=== PATIENT | female | born 1965 | race Caucasian/White ===

== ENCOUNTER 2018-05-23 17:09 | Inpatient (IN) | payer BC ==
[~2018-05-23] VITALS: Ht 165.1 cm; Wt 71.4 kg
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
[2018-05-23 17:55] LABS: BASO # 0.1 x10^3/uL (0.0-0.2); BASO % 1 % (0-3); EOS # 0.1 x10^3/uL (0.0-0.7); EOS % 1 % (0-3); HEMATOCRIT 43.5 % (36.0-47.0); HEMOGLOBIN 14.4 g/dL (12.0-15.5); LYMPH # 2.2 x10^3/uL (1.0-4.8); LYMPH % 22 % (24-48); MEAN CORPUSCULAR HEMOGLOBIN 29 pg (25-35); MEAN CORPUSCULAR HGB CONC 33 g/dL (31-37); MEAN CORPUSCULAR VOLUME 89 fL (79-100); MONO # 0.7 x10^3/uL (0.0-1.1); MONO % 7 % (0-9); NEUT # 7.3 x10^3uL (1.8-7.7); NEUT % 70 % (31-73); PLATELET COUNT 366 x10^3/uL (140-400); RED CELL DISTRIBUTION WIDTH 14.3 % (11.5-14.5); WHITE BLOOD COUNT 10.4 x10^3/uL (4.0-11.0)
[2018-05-23 18:11] LABS: ALBUMIN 4.3 g/dL (3.4-5.0); ALBUMIN/GLOBULIN RATIO 1.3 (1.0-1.7); CALCIUM 9.3 mg/dL (8.5-10.1); CREATININE 1.2 mg/dL (0.6-1.0); GFR 47.2; POTASSIUM 4.1 mmol/L (3.5-5.1); TOTAL BILIRUBIN 0.3 mg/dL (0.2-1.0); TOTAL PROTEIN 7.6 g/dL (6.4-8.2)
[2018-05-23] MEDS ORDERED: IV RINGERS SOLUTION,LACTATED 1,000 ML IV ONE (19:00)
[2018-05-23] MEDS ORDERED: ONDANSETRON PF 4 MG/2 ML VIAL. IV PRN (19:00)
[2018-05-23] MEDS: FAMOTIDINE 20 MG TABLET PO SCH (19:34)
[2018-05-23] MEDS: ENOXAPARIN ** NOTE DOSE ** SYRINGE SQ SCH (19:35)
--- NOTE | 2018-05-23 22:15 | NUR ---
ADMISSION: The patient, MADAI SANTANA, 53 y/o, F admitted by VINEET MARAVILLA MD, was given written information regarding hospital policies, unit procedures and contact persons. Pt arrived to room 109 via gurney, accompanied by [facility] and nursing sup. Dx: chest pain. Pt reports intermittent epigastric pain along with left arm numbness since Tuesday. Seen today at PCP office and sent to ED for workup. PMH reviewed, denies taking any home meds. Placed on telemetry showing NSR with HR in the 60's. Pt denies current pain. Will consult [facility] cardiology in AM. POC and unit routines discussed with pt, voiced understanding. Call light in reach. Valuables were checked and logged. Left in room with patient.
[2018-05-23 22:26] VITALS: BP 115/71
[2018-05-23] MEDS ORDERED: IBUP200T44 PO (23:09)
[2018-05-24] VITALS (7 sets, daily range): BP systolic 96–133; BP diastolic 58–84
--- NOTE | 2018-05-24 00:03 | RAD ---
Examination: CHEST PA LATERAL History: CHEST PAIN LESS THAN 24 HRS Comparison/Correlation: 12/19/2013 two-view chest x-ray exam Findings: PA and lateral views of chest were obtained. Heart size and pulmonary vasculature are normal. No infiltrate or effusion. Bony structures are grossly unremarkable for patient's age. Upper abdominal surgical clips noted. Inferior vena cava filter appears be present. Impression: No active disease. Electronically signed by: Hany Burrows MD (05/23/2018 11:59 PM) [facility]
--- NOTE | 2018-05-24 05:51 | EKG ---
[address] [address] Test Date: 2018-05-23 Test Time: 17:18:58 Pat Name: MADAI SANTANA Department: Room: 109 A Gender: F [employer]: : 1965 Requested By: VIVIAN GABRIEL Order Number: [id number] Reading MD: Kaiser Montero MD Measurements Intervals [place] Rate: 85 P: 51 MS: 174 QRS: 54 QRSD: 78 T: 54 QT: 364 QTc: 433 Interpretive Statements SINUS RHYTHM Electronically Signed On 05-30-2018 9:16:28 ANIMAL ASSISTED THERAPIST by Kaiser Montero MD
--- NOTE | 2018-05-24 06:25 | NUR ---
CARDIOLOGY CONSULT CALLED TO Aileen GRAY/Surjit WITH ANSWERING SERVICE. AWAITING CALL BACK.
[2018-05-24 06:44] LABS: CALCIUM 8.8 mg/dL (8.5-10.1); GFR 58.2; POTASSIUM 4.1 mmol/L (3.5-5.1)
[2018-05-24 08:08] LABS: BASO # 0.1 x10^3/uL (0.0-0.2); BASO % 2 % (0-3); EOS # 0.2 x10^3/uL (0.0-0.7); EOS % 2 % (0-3); HEMATOCRIT 45.4 % (36.0-47.0); LYMPH # 1.9 x10^3/uL (1.0-4.8); LYMPH % 27 % (24-48); MEAN CORPUSCULAR HEMOGLOBIN 30 pg (25-35); MEAN CORPUSCULAR HGB CONC 33 g/dL (31-37); MEAN CORPUSCULAR VOLUME 90 fL (79-100); MONO # 0.5 x10^3/uL (0.0-1.1); MONO % 8 % (0-9); NEUT # 4.3 x10^3uL (1.8-7.7); NEUT % 62 % (31-73); PLATELET COUNT 216 x10^3/uL (140-400); RED BLOOD COUNT 5.02 x10^6/uL (3.50-5.40); RED CELL DISTRIBUTION WIDTH 14.4 % (11.5-14.5)
[2018-05-24 08:52] LABS: PLT ESTIMATE ADEQUATE (ADEQUATE)
[2018-05-24 08:53] LABS: PLATELET CLUMP PRESENT
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
[2018-05-24] MEDS: ASPIRIN 81 MG TAB.CHEW PO SCH (09:11)
[2018-05-24] MEDS: FAMOTIDINE 20 MG TABLET PO SCH ×2 (09:11→21:04)
[2018-05-24] MEDS: ENOXAPARIN ** NOTE DOSE ** SYRINGE SQ SCH ×2 (09:12→21:04)
--- NOTE | 2018-05-24 10:16 | RAD ---
EXAM: Head CT without contrast. HISTORY: Memory loss. Stuttering. Dizziness. TECHNIQUE: Computed tomographic images of the head were obtained without contrast. *One or more of the following individualized dose reduction techniques were utilized for this examination: 1. Automated exposure control. 2. Adjustment of the mA and/or kV according to patient size. 3. Use of iterative reconstruction technique. COMPARISON: None. FINDINGS: There is no acute or subacute extra-axial or intraparenchymal hemorrhage. There is no mass effect or midline shift. There is no hydrocephalus. The little-white matter differentiation pattern is intact. The visualized portions of the orbits, paranasal sinuses and mastoid air cells are unremarkable. No suspicious calvarial lesion is seen. IMPRESSION: No acute intracranial findings. Electronically signed by: Jennifer Palafox MD (05/24/2018 10:11 AM) [place] [id number]
--- NOTE | 2018-05-24 23:59 | PN ---
DATE: SUBJECTIVE: This is a 53-year-old female came in with chest pain and pain radiating down her left arm. The patient is resting fairly comfortably, making fairly good progress overall. The patient has been noted to have some pain with and without activity. Dr. Montero put a wire in her to monitor her heart rhythm. Cardiac enzymes have been negative so far. OBJECTIVE: VITAL SIGNS: Blood pressure 101/60, respiratory rate 20, pulse 60, afebrile. GENERAL: The patient is alert and oriented. LUNGS: Diminished throughout, poor movement of air, but clear. CARDIOVASCULAR: Regular sinus rhythm. ABDOMEN: Soft, nontender. NEUROLOGIC: The patient's slightly anxious. LABORATORY DATA: Otherwise, labs are basically stable. PLAN: We will go ahead and continue to monitor the patient accordingly and hopefully ready for transfer in the morning to [facility] for further cardiac and neurological testing. Carotid Dopplers of lower extremity and ultrasounds were still pending. VINEET MARAVILLA MD DR: RYAN/ramu JOB#: [id number] / [id number]
[2018-05-25 05:24] VITALS: BP 113/62
--- NOTE | 2018-05-25 07:19 | CARD ---
MR#: [id number] Date of Study: 05/24/2018 Ordering Physician: TONIE CAVAZOS, Referring Physician: VINEET MARAVILLA Tech: Lorna Masterson RDCS APPROVED REPORT EXAM: Two-dimensional echocardiogram with saline contrast. Other Information Quality : GoodHR: 66bpm Rhythm : NSR INDICATION Chest Pain Echo Enhancing Agent Indication: Rule Out Septal Defect Agent/Amount Used: Agitated Eroipj7vX 2D DIMENSIONS Left Atrium(2D)3.6 (1.6-4.0cm)IVSd0.7 (0.7-1.1cm) Aortic Root(2D)2.3 (2.0-3.7cm)LVDd3.1 (3.9-5.9cm) LVOT Diameter2.2 (1.8-2.4cm)PWd0.8 (0.7-1.1cm) LVDs2.2 (2.5-4.0cm)FS (%) 28.6 % SV20.8 mlLVEF(%)56.6 (>50%) Aortic Valve AoV Peak Jose.125.7cm/sAoV VTI25.8cm AO Peak GR.6.3mmHgLVOT Peak Jose.110.4cm/s LVOT VTI 24.13cmAO Mean GR.4mmHg DAVID (VMAX)3.48gr2PBK (VTI)3.44cm2 Mitral Valve MV E Kfurfkvd91.3cm/sMV DECEL TQGJ315rn MV A Lhxbwcra43.2cm/sE/A Ratio1.1 Tricuspid Valve TR P. Dnfisoul536mm/sTR Peak Gr.9mmHg Pulmonary Vein S1 Eaqjcwtg21.9cm/sD2 Ejnorxaw63.6cm/s LEFT VENTRICLE The left ventricle cavity is small. There is normal left ventricular wall thickness. The left ventric ular systolic function is normal. The ejection fraction is estimated at 55-60%. There is normal LV se gmental wall motion. Transmitral Doppler flow pattern is Grade II-pseudonormal filling dynamics. No l eft ventricle thrombus noted on this study. There is no ventricular septal defect visualized. There i s no left ventricular aneurysm. There is no mass noted in the left ventricle. RIGHT VENTRICLE The right ventricle is normal size. There is normal right ventricular wall thickness. The right ventr icular systolic function is normal. ATRIA The left atrium size is normal. The right atrium size is normal. The interatrial septum is intact wit h no evidence for an atrial septal defect or patent foramen ovale as noted on 2-D or Doppler imaging. AORTIC VALVE The aortic valve is normal in structure and function. Doppler and Color Flow revealed no significant aortic regurgitation. There is no significant aortic valvular stenosis. There is no aortic valvular v egetation. MITRAL VALVE The mitral valve is normal in structure and function. There is no evidence of mitral valve prolapse. There is no mitral valve stenosis. Doppler and Color Flow revealed trace mitral regurgitation. TRICUSPID VALVE The tricuspid valve is normal in structure and function. Doppler and Color Flow revealed trace tricus pid regurgitation. There is no tricuspid valve prolapse or vegetation. There is no tricuspid valve st enosis. PULMONIC VALVE The pulmonary valve is normal in structure and function. There is no pulmonic valvular stenosis. GREAT VESSELS The aortic root is normal in size. The IVC is normal in size and collapses >50% with inspiration. PERICARDIAL EFFUSION There is no pleural effusion. There is no evidence of significant pericardial effusion. Critical Notification Critical Value: No <Conclusion> The left ventricular systolic function is normal. The ejection fraction is estimated at 55-60%. There is normal LV segmental wall motion. Transmitral Doppler flow pattern is Grade II-pseudonormal filling dynamics. Trace mitral regurgitation. Trace tricuspid regurgitation. There is no evidence of significant pericardial effusion. Bubble study negative for intracardiac shunt. Signed by : Shahram Porter, Electronically Approved : 05/25/2018 07:17:46
[2018-05-25] MEDS: ENOXAPARIN ** NOTE DOSE ** SYRINGE SQ SCH (07:55)
[2018-05-25] MEDS: ASPIRIN 81 MG TAB.CHEW PO SCH (07:55)
[2018-05-25] MEDS: FAMOTIDINE 20 MG TABLET PO SCH (07:55)
--- NOTE | 2018-05-25 08:14 | RAD ---
MR#: [id number] Date of Study: 05/24/2018 Ordering Physician: TONIE CAVAZOS, Referring Physician: VINEET MARAVILLA, Tech: Malka Angel RDMS, RVT, RTR APPROVED REPORT Patient Location: IN-PATIENT Laterality:Bilateral Indications Grayscale images of the bilateral common carotid, external and internal carotid vessels reveals mild intimal hyperplasia without any focal high-grade stenosis. Spectral waveforms and color Doppler do not reveal any focal stenosis. Overall 0 to less than 50% michael nosis by velocity criteria. Bilateral vertebral velocities are antegrade. Normal ICA to CCA ratios no berto Critical Notification Critical Value: No <Conclusion> No high-grade focal carotid occlusive disease. Signed by : Kaiser Montero, Electronically Approved : 05/25/2018 08:12:43
--- NOTE | 2018-05-25 08:16 | RAD ---
MR#: [id number] Date of Study: 05/24/2018 Ordering Physician: JOYCE ARRIAGA, Referring Physician: VINEET MARAVILLA, Tech: Malka Angel RDMS, RVT, RTR APPROVED REPORT Lower Extremity Venous Study for DVT Patient Location: IN-PATIENT Indications Lower Extremity Edema: Technically this is a difficult study due to the patient's body habitus. Grossly the bilateral common femoral veins are compressible. The femoral vein is not well visualized but grossly appears to be co mpressible. The popliteal veins bilaterally are compressible. Below the knee there is spontaneous jose d w noted but the veins are not well visualized. Grossly no obvious evidence of DVT. Critical Notification Critical Value: No <Conclusion> Technically difficult study without any gross evidence of DVT. Signed by : Kaiser Montero, Electronically Approved : 05/25/2018 08:14:07
--- NOTE | 2018-05-25 10:21 | PDOC ---
PROGRESS NOTES Diagnosis Problem Problems Medical Problems: (1) Chest pain Status: Acute Assessment Problems Medical Problems: (1) Chest pain Status: Acute 1. chest pain, neg trop x 2, no acute ischemic changes on EKG. echo with normal LV function and wall motion. continue aspirin, no beta kalyan due to borderline blood pressure and mild bradycardia. plan for outpatient MPI 2. intermittent loss of vision with associated dizziness - negative bubble study , negative carotid duplex. MCT as outpatient. Further neuro recs per PCP. 3. anxiety - per PCP 4. family history of cad. Objective Vital Signs Date Time Temp Pulse Resp B/P (MAP) Pulse Ox O2 Delivery O2 Flow Rate FiO2 05/25/18 08:01 Room Air 05/25/18 05:24 97.6 51 16 113/62 (79) 97 Intake and Output 05/25/18 07:01 Intake Total 1790 ml Balance 1790 ml Intake Oral 1790 ml # Voids 6 Review of Relevant I have reviewed the following items carolyn (where applicable) has been applied. Labs Laboratory Tests Test 05/23/18 17:31 05/23/18 22:30 05/24/18 06:00 05/24/18 07:51 White Blood Count 10.4 x10^3/uL (4.0-11.0) 7.0 x10^3/uL (4.0-11.0) Red Blood Count 4.90 x10^6/uL (3.50-5.40) 5.02 x10^6/uL (3.50-5.40) Hemoglobin 14.4 g/dL (12.0-15.5) 15.0 g/dL (12.0-15.5) Hematocrit 43.5 % (36.0-47.0) 45.4 % (36.0-47.0) Mean Corpuscular Volume 89 fL (79-100) 90 fL (79-100) Mean Corpuscular Hemoglobin 29 pg (25-35) 30 pg (25-35) Mean Corpuscular Hemoglobin Concent 33 g/dL (31-37) 33 g/dL (31-37) Red Cell Distribution Width 14.3 % (11.5-14.5) 14.4 % (11.5-14.5) Platelet Count 366 x10^3/uL (140-400) 216 x10^3/uL (140-400) Neutrophils (%) (Auto) 70 % (31-73) 62 % (31-73) Lymphocytes (%) (Auto) 22 % (24-48) 27 % (24-48) Monocytes (%) (Auto) 7 % (0-9) 8 % (0-9) Eosinophils (%) (Auto) 1 % (0-3) 2 % (0-3) Basophils (%) (Auto) 1 % (0-3) 2 % (0-3) Neutrophils # (Auto) 7.3 x10^3uL (1.8-7.7) 4.3 x10^3uL (1.8-7.7) Lymphocytes # (Auto) 2.2 x10^3/uL (1.0-4.8) 1.9 x10^3/uL (1.0-4.8) Monocytes # (Auto) 0.7 x10^3/uL (0.0-1.1) 0.5 x10^3/uL (0.0-1.1) Eosinophils # (Auto) 0.1 x10^3/uL (0.0-0.7) 0.2 x10^3/uL (0.0-0.7) Basophils # (Auto) 0.1 x10^3/uL (0.0-0.2) 0.1 x10^3/uL (0.0-0.2) Sodium Level 142 mmol/L (136-145) 143 mmol/L (136-145) Potassium Level 4.1 mmol/L (3.5-5.1) 4.1 mmol/L (3.5-5.1) Chloride Level 103 mmol/L (98-107) 106 mmol/L (98-107) Carbon Dioxide Level 30 mmol/L (21-32) 30 mmol/L (21-32) Anion Gap 9 (6-14) 7 (6-14) Blood Urea Nitrogen 8 mg/dL (7-20) 8 mg/dL (7-20) Creatinine 1.2 mg/dL (0.6-1.0) 1.0 mg/dL (0.6-1.0) Estimated GFR (Cockcroft-Gault) 47.2 58.2 BUN/Creatinine Ratio 7 (6-20) Glucose Level 99 mg/dL (70-99) 87 mg/dL (70-99) Calcium Level 9.3 mg/dL (8.5-10.1) 8.8 mg/dL (8.5-10.1) Total Bilirubin 0.3 mg/dL (0.2-1.0) Aspartate Amino Transf (AST/SGOT) 17 U/L (15-37) Alanine Aminotransferase (ALT/SGPT) 20 U/L (14-59) Alkaline Phosphatase 76 U/L (46-116) Creatine Kinase 120 U/L (26-192) Troponin I Quantitative < 0.017 ng/mL (0-0.055) < 0.017 ng/mL (0-0.055) XI-Bkq-H-Type Natriuretic Peptide 22 pg/mL (0-124) Total Protein 7.6 g/dL (6.4-8.2) Albumin 4.3 g/dL (3.4-5.0) Albumin/Globulin Ratio 1.3 (1.0-1.7) Lipase 156 U/L (73-393) Magnesium Level 2.2 mg/dL (1.8-2.4) Triglycerides Level 115 mg/dL (0-150) Cholesterol Level 160 mg/dL (0-200) LDL Cholesterol, Calculated 82 mg/dL (0-100) VLDL Cholesterol, Calculated 23 mg/dL (0-40) Non-HDL Cholesterol Calculated 105 mg/dL (0-129) HDL Cholesterol 55 mg/dL (40-60) Cholesterol/HDL Ratio 2.0 Platelet Estimate Adequate (ADEQUATE) Platelet Clumps, EDTA Present Test 05/24/18 10:20 D-Dimer (Chelsi) 0.23 mg/L (0.00-0.50) Medications Current Medications Ondansetron HCl (Zofran) 4 mg PRN Q4HRS PRN IV NAUSEA/VOMITING; Start 05/23/18 at 19:00; Stop 05/24/18 at 19:00; Status DC Enoxaparin Sodium (Lovenox 80mg Syringe) 70 mg BID SQ Last administered on 05/25at 07:55; Start 05/23/18 at 21:00 Aspirin (Children'S Aspirin) 81 mg DAILY PO Last administered on 05/25/18at 07: 55; Start 05/24/18 at 09:00 Famotidine (Pepcid) 20 mg BID PO Last administered on 05/25/18at 07:55; Start at 21:00 Fentanyl Citrate (Fentanyl 2ml Vial) 50 mcg QIDPRN PRN IV PAIN; Start 05/23/18 at 19:00 Lactated Ringer's 1,000 ml @ 200 mls/hr 1X ONCE IV Last administered on at 19:35; Start 05/23/18 at 19:00; Stop 05/23/18 at 23:59; Status DC Active Scripts Active Reported Motrin Ib (Ibuprofen) 200 Mg Tablet 600 Mg PO PRN Q6HRS PRN No Known Medications Prior To Admisstion (Info) Each 1 Each Vitals/I & O Vital Sign - Last 24 Hours 05/24/18 05/24/18 05/24/18 05/24/18 10:45 15:26 15:55 15:56 Temp 98.2 98.3 Pulse 53 69 54 56 Resp 20 20 B/P (MAP) 106/68 (81) 104/66 (79) 96/58 (71) 117/77 (90) Pulse Ox 97 97 O2 Delivery Room Air Room Air 05/24/18 05/24/18 05/24/18 05/24/18 15:56 20:00 20:25 23:03 Temp 97.7 98.0 Pulse 58 64 56 Resp 20 20 B/P (MAP) 133/84 (100) 101/64 (76) 102/67 (79) Pulse Ox 97 96 O2 Delivery Room Air Room Air Room Air 05/25/18 05/25/18 05:24 08:01 Temp 97.6 Pulse 51 Resp 16 B/P (MAP) 113/62 (79) Pulse Ox 97 O2 Delivery Room Air Room Air Intake and Output 05/24/18 05/24/18 05/25/18 15:01 23:01 07:01 Intake Total 400 ml 750 ml 640 ml Balance 400 ml 750 ml 640 ml TONIE CAVAZOS WOUND NURSE May 25, 2018 10:21
[2018-05-25 10:51] VITALS: BP 111/71
--- NOTE | 2018-05-25 11:13 | NUR ---
NURSING NOTE DISCHARGE PT TRANSFERRED TO [facility] FOR NEUROLOGY CONSULT AT 1110 VIA EMS ACCOMPANIED BY EMS PERSONNEL. PT BELONGINGS GIVEN TO EMS. REPORT CALLED TO KARA. AJ RN
--- NOTE | 2018-05-25 12:26 | DS ---
DATE OF DISCHARGE: 05/25/2018 HOSPITAL COURSE: A 53-year-old female has been having intermittent chest pain radiating down her left arm. The patient also has been having some other neurological phenomenon as well. Her echocardiogram was within range by Dr. Porter although the patient had a continued history of chest pain, had to be taken down to [place] for heart catheterization and further evaluation as well. The cardiac enzymes were negative, but the patient still had intermittent chest pain with exertion. The patient's cholesterol was basically stable. The patient made a good progress overall and was discharged to be transferred down to the facility down there at [place]. VINEET MARAVILLA MD DR: RYAN/ramu JOB#: [id number] / [id number]
== END 2018-05-25 11:10 | disposition short-term general hospital (02) | DRG 313 ==
LOC: ER 17:09 → 1 SOUTH 21:06
PROVIDERS: ADMIT Family Medicine; ATTEND Family Medicine
DX: R07.89 Other chest pain (principal); F41.9 Anxiety disorder, unspecified; F80.81 Childhood onset fluency disorder; G43.009 Migraine without aura, not intractable, without status migrainosus; H54.62 Unqualified visual loss, left eye, normal vision right eye; I10 Essential (primary) hypertension; Z82.3 Family history of stroke; Z82.49 Family history of ischemic heart disease and other diseases of the circulatory system; Z87.891 Personal history of nicotine dependence; Z83.3 Family history of diabetes mellitus; Z88.8 Allergy status to other drugs, medicaments and biological substances
CPT/HCPCS: 36415; 70450; 71046; 80048; 80053; 80061; 82550; 83690; 83735; 83880; 84484; 85025; 85379; 93005; 93306; 93880; 93970; 96360; G0238; J1650; J7120; 99285-25